=== PATIENT | male | born 1960 | race African-American/Black ===

== ENCOUNTER 2021-11-22 22:10 | Emergency (ER) | payer OTHER ==
[~2021-11-22] VITALS: Ht 177.8 cm; Wt 68.0 kg
--- NOTE | 2021-11-22 23:23 | NUR ---
COVID ANTIGEN SWAB COLLECTED AND SENT TO LAB
--- NOTE | 2021-11-22 23:23 | NUR ---
LAB AT BEDSIDE
--- NOTE | 2021-11-22 23:28 | NUR ---
GAGANDEEP FROM [facility] FOR INCREASED AGITATION. CHANGED INTO GOWN AND PLACED ON MONITOR. SITTER AT BEDSIDE AND SAFETY MEASURES IN PLACE.
[2021-11-23 00:34] LABS: BASOPHILS # (AUTO) 0.1 K/uL (0.0-0.2); EOSINOPHILS % (AUTO) 1.9 % (0.0-6.0); HEMATOCRIT 41 % (39-51); HEMOGLOBIN 13.2 g/dL (13.5-17.5); LYMPHOCYTES # (AUTO) 2.1 K/uL (0.8-4.8); MEAN CORPUSCULAR HGB CONC 32 g/dl (31.0-36.0); MEAN CORPUSCULAR VOLUME 73 fL (80-96); MONOCYTES # (AUTO) 0.7 K/uL (0.1-1.30); MONOCYTES % (AUTO) 9.3 % (2.0-12.0); NEUTROPHILS # (AUTO) 4.2 K/uL (1.8-8.9); NEUTROPHILS % (AUTO) 58.8 % (43.0-81.0); PLATELET COUNT (AUTO) 235 K/uL (150-450); RED BLOOD CELL COUNT(AUTO) 5.64 MIL/uL (4.5-6.0); WHITE BLOOD COUNT (AUTO) 7.2 K/uL (4.3-11.0)
[2021-11-23 00:49] LABS: CALCIUM, SERUM 9.5 mg/dL (8.5-10.1); CARBON DIOXIDE 32 mmol/L (21-32); CHLORIDE 107 mmol/L (98-107); CREATININE 0.8 mg/dL (0.6-1.3); GLUCOSE 109 mg/dL (74-106); POTASSIUM 3.8 mmol/L (3.5-5.1); SODIUM SERUM 144 mmol/L (136-145); UREA NITROGEN, BLOOD 12 mg/dL (7-18)
[2021-11-23 00:59] LABS: ALANINE AMINOTRANSFERASE 19 U/L (12-78); ALBUMIN 3.7 g/dL (3.4-5.0); ALCOHOL, BLOOD < 3 mg/dL (0-0); ALKALINE PHOSPHATASE 74 U/L (46-116); BILIRUBIN,DIRECT 0.1 mg/dL (0.0-0.2); BILIRUBIN,TOTAL 0.5 mg/dL (0.2-1.0); TOTAL PROTEIN, SERUM 8.2 g/dL (6.4-8.2)
--- NOTE | 2021-11-23 01:01 | NUR ---
CALLED [facility] [employer]PERINTENDENT , ART
--- NOTE | 2021-11-23 01:01 | NUR ---
UNABLE TO OBTAIN URINE AT THIS TIME
[2021-11-23 01:52] LABS: ASPARTATE AMINOTRANSFERASE 18 U/L (15-37)
[2021-11-23 01:53] LABS: ACETAMINOPHEN 0 ug/ml (10-30)
--- NOTE | 2021-11-23 02:17 | NUR ---
pt will be transported back to facility in 30 mins via [facility].
--- NOTE | 2021-11-23 03:04 | NUR ---
NOTIFIED TEODORA TOMLINSON OF PT RETURNING TO FACILITY
--- NOTE | 2021-11-23 03:22 | NUR ---
[facility] ARRIVED FOR PACKAGE SEALER
[2021-11-23 03:27] VITALS: BP 126/82
== END 2021-11-23 03:28 ==
LOC: ER 22:15
DX: R45.1 Restlessness and agitation (principal); Z20.822 Contact with and (suspected) exposure to COVID-19; Z88.0 Allergy status to penicillin; F20.9 Schizophrenia, unspecified; Z86.69 Personal history of other diseases of the nervous system and sense organs
CPT/HCPCS: 36415; 80048; 80076; 80143; 80320; 85025; 87426; 99283; C9803; G0480